=== PATIENT | female | born 1995 | race Caucasian/White ===

== ENCOUNTER 2022-03-27 18:05 | Emergency (ER) | payer OTHER ==
[~2022-03-27] VITALS: Ht 167.6 cm; Wt 54.5 kg
[2022-03-27 18:25] VITALS: TEMP 98.1
[2022-03-27 19:02] LABS: COLLECTION METHOD CLEAN CATCH
[2022-03-27 19:08] LABS: BASO % 0.6 % (0.0-2.0); EOS % 0.1 % (0.0-4.0); GRAN # 5.1 K/mm3 (1.4-6.5); GRAN % 75.1 % (42.2-75.2); LYMPH # 1.2 K/mm3 (1.2-3.4); LYMPH % 17.5 % (20.0-51.0); MEAN CELL VOLUME 94 fl (80.0-100.0); MEAN CORPUSCULAR HEMOGLOBIN 32 pg (27-31); MEAN CORPUSCULAR HGB CONC 34 g/dl (33.0-37.0); MEAN PLATELET VOLUME 9.2 fl (7.4-10.4); MONO # 0.4 K/mm3 (0.1-0.6); MONO % 6.4 % (1.7-9.3); PLATELET COUNT 415 K/mm3 (130-400); RED BLOOD COUNT 3.78 M/mm3 (4.10-5.30); REDCELL DISTRIBUTION WIDTH-CV 13.2 % (11.5-14.5)
[2022-03-27 19:09] LABS: HEMATOCRIT 35.4 % (37.0-47.0)
[2022-03-27 19:10] LABS: URINE APPEARANCE Clear (CLEAR/HAZY); URINE COLOR Yellow (YELLOW); URINE GLUCOSE Negative (NEGATIVE); URINE KETONE 3+ (NEGATIVE); URINE PROTEIN(semi-quant) Negative (NEGATIVE)
[2022-03-27 19:11] LABS: URINE BLOOD 2+ (NEGATIVE); URINE NITRATE Negative (NEGATIVE); URINE UROBILINOGEN 0.2 E.U/dL (0.2-1.0)
[2022-03-27 19:27] LABS: ALBUMIN 4.6 gm/dL (3.5-5.0); BILIRUBIN,TOTAL 0.6 mg/dL (0.2-1.2); CALCIUM 9.4 mg/dL (8.4-10.2); CREATININE, serum 0.85 mg/dL (0.57-1.11); POTASSIUM 4.1 mmol/L (3.5-4.5); TOTAL PROTEIN 7.8 gm/dL (6.2-8.1)
[2022-03-27 20:49] LABS: MUCOUS Present (NOT PRESENT); SQUAMOUS EPITHELIAL 0-2 /hpf (0-10); URINE BACTERIA None Seen /hpf (NONE SEEN); URINE RBC >50 /hpf (0-2)
[2022-03-27] MEDS ORDERED: FLOMAX 0.40.4 MG/CAP PO (20:53)
[2022-03-27] MEDS ORDERED: PERCOCET 325 MG1 TA2 PO (20:54)
[2022-03-27 21:15] VITALS: BP 120/74; PULSE 64
== END 2022-03-27 21:18 | disposition home or self-care (01) ==
LOC: COL.ER 18:05
PROVIDERS: Physician Assistant
DX: N13.2 Hydronephrosis with renal and ureteral calculous obstruction (principal); Z32.02 Encounter for pregnancy test, result negative; Z28.310 Unvaccinated for COVID-19
CPT/HCPCS: J1885; J2270; J2550; Q9967

== ENCOUNTER 2023-08-06 12:46 | Inpatient (IN) | payer BC ==
[2023-08-06] VITALS (14 sets, daily range): BP systolic 92–111; BP diastolic 53–78; PULSE 55–73; TEMP 98
[~2023-08-06] VITALS: Ht 167.6 cm; Wt 69.5 kg
[~2023-08-06 12:46] MED LIST: FLOMAX 0.40.4 MG/CAP PO; PERCOCET 325 MG1 TA2 PO
--- NOTE | 2023-08-06 19:15 | NUR ---
1915- PATIENT AMBULATORY TO THE FLOOR WITH . PATIENT CHANGED INTO HOSPITAL GOWN. [id number]. PATIENT DENIES LEAKING OF FLUID, VAGINAL BLEEDING BUT STATES SHE HAS HAD BENJI NAM ON AND OFF THIS WEEK. PLAN OF CARE DISCUSSED WITH PATIENT. PATIENT AND SPOUSE VERBALIZE UNDERSTANDING.
[2023-08-06] MEDS ORDERED: PRENATAL TABLET PO (19:55)
[2023-08-06 20:11] LABS: BASO # 0.1 K/mm3 (0.0-0.2); BASO % 0.5 % (0.0-2.0); EOS # 0.1 K/mm3 (0.0-0.7); EOS % 0.9 % (0.0-4.0); GRAN # 7.3 K/mm3 (1.4-6.5); GRAN % 71.1 % (42.2-75.2); HEMOGLOBIN 11.8 g/dl (12.5-16.0); LYMPH # 2.1 K/mm3 (1.2-3.4); LYMPH % 20.1 % (20.0-51.0); MEAN CELL VOLUME 92 fl (80.0-100.0); MEAN CORPUSCULAR HEMOGLOBIN 33 pg (27-31); MEAN CORPUSCULAR HGB CONC 35 g/dl (33.0-37.0); MEAN PLATELET VOLUME 9.8 fl (7.4-10.4); MONO # 0.7 K/mm3 (0.1-0.6); MONO % 7.1 % (1.7-9.3); PLATELET COUNT 296 K/mm3 (130-400); RED BLOOD COUNT 3.61 M/mm3 (4.10-5.30); REDCELL DISTRIBUTION WIDTH-CV 12.9 % (11.5-14.5)
[2023-08-06 20:12] LABS: HEMATOCRIT 33.3 % (37.0-47.0)
[2023-08-06] MEDS ORDERED: SLOW FE137 M1 PO (20:58)
[2023-08-07] VITALS (41 sets, daily range): BP systolic 91–143; BP diastolic 48–79; PULSE 51–76; TEMP 98–98.6
--- NOTE | 2023-08-07 03:30 | NUR ---
0305- PATIENT ASSISTED TO SIDE OF THE BED. PULSE OX APPLIED. 0309- TRENT CLARK EXPLAINS PROCEDURE AND RISK OF EPIDURAL. 0324- TEST DOSE ADMINISTERED BY TRENT CLARK. SEE ANESTHESIA RECORDS. 0330- PATIENT REPOSITIONED IN SEMIFOWLERS. PLAN OF CARE AND SAFETY PRECAUITONS EXPLAINED TO PATIENT AND FAMILY.
--- NOTE | 2023-08-07 11:29 | NUR ---
PERFORMED SVE ON PATIENT AT 0710. PATIENT COMPLETE. DR GARRISON NOTIFIED. ORDERS TO LABOR DOWN FOR A WHILE TILL SHE HAS DELIVERED HER C SECTION. PATIENT SITTING UP WITH A PEANUT BALL UNDER ONE LEG DURING THIS TIME. OK TO START PUSHING AT 0755. PATIENT PUSHING WELL. [place] REMOVED AT 0800. DR GARRISON HERE AT 0815 TO CHECK PROGRESS. PATIENT PUSHING WELL. DR GARRISON HERE AT 0840 TO PERFORM SVE AGAIN. PATIENT CLOSE TO DELIVERY WITH NOTED. NURSERY AND CHARGE NOTIFIED AT 0840 THAT WE WERE CLOSE TO DELIVERY. PATIENT DELIVERED AT 0858 SPONATENEOUSLY A LIVE FEMALE . A 30 SECOND SHOULDER WAS NOTED. PATIENTS HEAD MOVED DOWN AND KNEES BACK. DR YAERS SWEPT ANTERIOR HAND AND BABYS SHOULDERS DELIVERED. BABY NOT ABLE TO CRY OR TAKE BREATH AFTER WARMING DRYING AND STIMUATING SO AFTER ONE MINUTE CORD WAS CLAMPED AND CUT AND BABY WAS MOVED TO WARMER. PLACENTA DELIVERED AT 0901. PATIENT TOLERATED WELL. PITOCIN BOLUS INFUSING AFTER DELIVERY OF PLACENTA. 2ND DEGREE LACERATION REAPIRED AND BED PUT BACK TOGETHER WITH NEW CHUX AND ICE PACK PAD. PATIENT TOLERATING WELL. BABY TO NURSERY FOR FURTHER SUPPORT. SCANT BLEEDING UPON FIRST FUNDAL RUB. VSS. WILL CONTINUE TO MONITOR
[2023-08-07] MEDS ORDERED: IBU800 M1 PO (15:49)
--- NOTE | 2023-08-07 19:25 | NUR ---
pt has ambulated to bathroom and voided a good amount. Verbalizes continued desire to be discharged tonight so she they can go to [facility] to see the baby. Pt's mother is in the room and says she will be driving them and has already made hotel reservations. Discharge medications/ dosages for over the counter meds reviewed. Encouraged to stop on the way out of town to corn pick[place] over the counter meds. Reviewd concerns with weather/road conditions. Pt's mother verbalizes comfort driving in bad winter weather and road conditons.
--- NOTE | 2023-08-07 20:20 | NUR ---
Discharge instructions reviewed with pt and spouse. Questions invited and answerred. Discussed bad weather and road conditions (again) pt still desires to be discharged and her Mom will drive them to [place]. Ambulatory off unit.
== END 2023-08-07 20:20 | disposition home or self-care (01) | DRG 807 ==
LOC: OB 12:46 → LDR 19:03 → OB 08-07 16:36
PROVIDERS: ADMIT Student in an Organized Health Care Education/Training Program
PROC: 10E0XZZ Delivery of Products of Conception, External Approach (ICD-10-PCS; principal; 2023-08-07)
PROC: 0KQM0ZZ Repair Perineum Muscle, Open Approach (ICD-10-PCS; 2023-08-07)
DX: O48.0 Post-term pregnancy (principal); Z37.0 Single live birth; Z3A.40 40 weeks gestation of pregnancy; O36.63X0 Maternal care for excessive fetal growth, third trimester, not applicable or unspecified; O76 Abnormality in fetal heart rate and rhythm complicating labor and delivery; O34.03 Maternal care for unspecified congenital malformation of uterus, third trimester; Q51.810 Arcuate uterus; O70.1 Second degree perineal laceration during delivery; O66.0 Obstructed labor due to shoulder dystocia; O69.81X0 Labor and delivery complicated by cord around neck, without compression, not applicable or unspecified; O77.0 Labor and delivery complicated by meconium in amniotic fluid
CPT/HCPCS: J2590; J2795; J3010; J7120